=== PATIENT | female | born 1985 | race Caucasian/White ===

== ENCOUNTER 2022-10-16 11:31 | Outpatient (CLI) | payer OTHER, SELFPAY ==
[2022-10-16 13:44] LABS: Basophils Absolute Auto 0.1 K/mm3 (0.0-0.1); Basophils Percent Auto 0.7 % (0.2-1.2); Eosinophils Absolute Auto 0.2 K/mm3 (0-0.3); Eosinophils Percent Auto 2.4 % (0-4.4); Hematocrit 37.5 % (37.0-47.0); Hemoglobin 12.4 g/dL (12.0-15.0); Immature Granulocyte Absolute 0.02 K/mm3 (0.00-0.031); Immature Granulocyte Percent A 0.3 % (0-0.5); Lymphocytes Absolute Auto 2.37 K/mm3 (0.9-3.2); Lymphocytes Percent Auto 31.2 % (18.3-44.2); Mean Corpuscular HGB Conc 33.1 g/dl (32-36); Mean Corpuscular Hemoglobin 32.5 pg (26-34); Mean Corpuscular Volume 98.2 fl (80-100); Mean Platelet Volume 10.1 fl (7.4-10.4); Monocytes Absolute Auto 0.5 K/mm3 (0.1-0.6); Monocytes Percent Auto 6.5 % (2.6-8.5); Neutrophils Absolute Auto 4.5 K/mm3 (1.3-6.7); Neutrophils Percent Auto 58.9 % (45.5-73.1); Platelet Count Result 251 k/mm3 (150-375); Red Blood Count 3.82 M/mm3 (4.2-5.4); Red Cell Distribution Width 13.2 % (11.5-14.5); White Blood Count 7.6 K/mm3 (4.5-10.0)
== END 2022-10-16 11:32 | disposition home or self-care (01) ==
PROVIDERS: PCP Nurse Practitioner; Visit Provider Obstetrics & Gynecology
DX: Z01.818 Encounter for other preprocedural examination (principal); N93.9 Abnormal uterine and vaginal bleeding, unspecified
CPT/HCPCS: 36415; 85025; 86850; 86900; 86901

== ENCOUNTER 2022-10-19 03:17 | Day surgery (SDC) | payer OTHER, SELFPAY ==
[2022-10-11 12:23] VITALS: BMI 30.2
--- NOTE | 2022-10-11 12:30 | PC.NURSE ---
Report to the Outpatient Waiting Room, entrance under the green pavilion located off [facility], at time 9:30 on date 10/19/22. Planned Procedure Time: 11:30. Time changes happen often and if your time is changed the preop area will call you the afternoon before. - You and your visitor will be asked to self-screen and do not enter if you have any COVID symptoms. - A mask is optional within the hospital at this time. Patients may have clear liquids (water, carbonated beverages, clear teas, apple juice) until 3 hours prior to surgery (8:30) with a maximum of 20 ounces. - No food from midnight until time of surgery Take the following medications with a SIP of water the morning of surgery: NONE DO NOT STOP ANY OF YOUR OTHER PRESCRIPTION MEDICATIONS PRIOR TO SURGERY ?EXCEPT THE FOLLOWING Medications to discontinue per physician: VITAMINS/SUPPLEMENTS Date to take last dose: 10/15/22 Please no make-up, nail greenlandic, hairspray, perfume, deodorant, or body powder the day of surgery. No jewelry (including any body piercings) or valuables the day of surgery, leave them at home. Please take a shower or bath the night before, or the morning of, surgery with an antibacterial soap. Wear comfortable, loose fitting clothing. - Jewelry must be removed prior to entering the operating room. Rings and piercings that are not removed may be cut off. - The hospital will not accept responsibility for valuables. - Please leave all valuables, including medications, at home the day of surgery. If you are going home after surgery, a licensed stake driver must drive you home. - NO public transportation without another adult if you receive anesthesia. - We recommend that an adult stay with you for 24 hours following discharge. - We also recommend that you do not drive, make important decision, drink alcoholic beverages, or take any drugs that were not prescribed by your health care provider for at least 24 hours after your discharge time. Follow any additional instructions given to you from your surgeon. If you or anyone in your household have experienced Covid symptoms in the past week, please notify your surgeon or the nurse liaison at the phone number below for possible testing. Telephone instructions given to PT - GEORGE TORRES and asked if any additional questions and then verbalized understanding. Patient advised to call surgeon office or pre surgery nurse liaison [phone] if any additional questions.
--- NOTE | 2022-10-16 16:21 | PM.IMHP ---
H&P: HPI History of Present Illness Date/Time: 10/16/22 16:21 Chief Complaint: vaginal bleeding Narrative: for 4 months is a 36-year-old multiparous patient admitted for robotic hysterectomy and bilateral salpingectomy secondary to a failed ablation with heavy bleeding. She continues to have heavy irregular bleeding despite having had an ablation she opts for hysterectomy and bilateral salpingectomy with remaining ovaries. Risks and benefits were reviewed including not exclusive aspiration any bleeding transfusion infection perforation of the bowel bladder ureters on the enlarged with need for laparotomy. She received the [employer] handout entitled hysterectomy as well as the Terri and out. She had all questions answered. She asked proceeded [facility] Past Medical History Medical History (Updated 10/16/22 @ 16:27 by Rajesh Hernandez MD) Anxiety and depression Blood pressure elevated without history of HTN Essential (primary) hypertension Vitamin D deficiency Family History Family History Mother Hypertension Cerebrovascular accident Father Patient's father is in good health Grandparent Cerebrovascular accident Family history of malignant neoplasm Malignant neoplasm of prostate Family history of malignant neoplasm of thyroid Social History Social History (Updated 01/12/22 @ 13:27 by Shante Tapia MA) Smoking status: Never smoker Second hand tobacco smoke exposure: Yes Alcohol intake: current Drinks per week: 2 Substance use: never Substance use type: does not use Lack of Transportation: No Lack of Food: Never True Current Housing: I Have Housing Concerned About Future Housing: No Difficulty Paying Gas/Electric Bills: No Difficulty Paying for Meds: No Currently Unemployed: No Education: Master's Degree or Higher Difficulty w/ Childcare or Family Care: No Living arrangements: with family Additional living arrangements comments: CHILDREN Spiritual care concerns: No Meds Home Medications and Allergies Home Medications Medication Instructions Recorded Confirmed Type cholecalciferol (vitamin D3) 50 50 mcg PO DAILY 01/12/22 10/11/22 History mcg (2,000 unit) capsule multivitamin 1 tablet PO DAILY 01/12/22 10/11/22 History Allergies Allergy/AdvReac Type Severity Reaction Status Date / Time Sulfa (Sulfonamide Allergy Unknown Hives Verified 10/11/22 12:23 Antibiotics) Exam Const: General: cooperative, healthy appearing and comfortable Nutritional Appearance: average body habitus Orientation/consciousness: oriented to person, oriented to place and oriented to time HENMT: Head: normal to inspection Resp: Effort & Inspection: normal respiratory effort Cardio: Rate: regular rate Rhythm: regular rhythm Heart sounds: S1 normal heart sound present and S2 normal heart sound present GI: Inspection: normal to inspection : External Female Exam: normal external appearance Speculum Exam - Vagina: normal appearance of the vagina Speculum Exam - Cervix: normal appearance of the cervix Bimanual exam- vagina & uterus: uterine shape normal Bimanual Exam- Adnexa, other: normal adnexae Assessment and Plan Assessment and plan (1) Vaginal bleeding: Code(s): N93.9 - Abnormal uterine and vaginal bleeding, unspecified Status: Acute Plan robotic total vaginal hysterectomy and bilateral salpingectomy
[2022-10-19] VITALS (10 sets, daily range): BP systolic 124–171; BP diastolic 68–92; PULSE 50–83; RESP 10–18; TEMP 36.6–37.2; O2SAT 100
--- NOTE | 2022-10-19 06:35 | WPDHPUPDATE1 ---
History and Physical Update Update Date/Time: 10/19/22 06:35 History and Physical has been reviewed, including an updated exam of the patient. There are NO changes in the patient's condition. Risks, benefits, and alternatives have been discussed and questions answered. Patient agrees to proceed with procedure.
[2022-10-19] MEDS: KETOROLAC 15 MG/ML VIAL (*BKC) IV PUSH (10:01)
[2022-10-19] MEDS: LACTATED RINGERS 1,000 ML 30 ML IV CONT ×2 (10:01→12:37)
[2022-10-19] MEDS: ACETAMINOPHEN 500 MG TABLET 1000 MG PO (10:02)
[2022-10-19] MEDS: SCOPOLAMINE 1.5 MG PATCH TRANSDERM (10:03)
--- NOTE | 2022-10-19 10:17 | WPDANESEPPF ---
Anes - Initial Pre Proc Eval Procedure: Operation Date: 10/19/22 11:30 Proposed Procedures p Robotic Assisted Total Vaginal Hysterectomy with Bilateral Salpingectomy - Rajesh Hernandez MD Date/Time: 10/19/22 10:17 Surgeon: Rajesh Hernandez MD Pre Op Diagnosis: excess vag bleeding, pain, failed ablation Patient Data Age: 36 Gender: F Height: 1.55 m Weight: 72.3 kg Last Vital Signs Temp 36.7 C 10/19/22 09:40 Pulse 83 10/19/22 09:40 Resp 16 10/19/22 09:40 BP 144/82 H 10/19/22 09:40 Pulse Ox 100 10/19/22 09:40 O2 Del Method Room Air 10/19/22 09:40 Allergies Allergy/AdvReac Type Severity Reaction Status Date / Time Sulfa (Sulfonamide Allergy Unknown Hives Verified 10/19/22 09:45 Antibiotics) Home Medications Medication Instructions Recorded Confirmed Type cholecalciferol (vitamin D3) 50 50 mcg PO DAILY 01/12/22 10/19/22 History mcg (2,000 unit) capsule multivitamin 1 tablet PO DAILY 01/12/22 10/19/22 History hydrocodone 5 mg-acetaminophen 325 1 tablet PO Q4H PRN pain #30 tabs 10/19/22 Rx mg tablet Patient hx anesthesia problems: none Family hx anesthesia problems: none Results Review: All pre-operative results and documents have been reviewed as part of the pre-operative evaluation. [facility] Past Medical History Medical History Anxiety and depression Blood pressure elevated without history of HTN Essential (primary) hypertension Vitamin D deficiency Family History Family History Mother Hypertension Cerebrovascular accident Father Patient's father is in good health Grandparent Cerebrovascular accident Family history of malignant neoplasm Malignant neoplasm of prostate Family history of malignant neoplasm of thyroid Social History Social History Smoking status: Never smoker Second hand tobacco smoke exposure: Yes Alcohol intake: current Drinks per week: 2 Substance use: never Substance use type: does not use Lack of Transportation: No Lack of Food: Never True Current Housing: I Have Housing Concerned About Future Housing: No Difficulty Paying Gas/Electric Bills: No Difficulty Paying for Meds: No Currently Unemployed: No Education: Master's Degree or Higher Difficulty w/ Childcare or Family Care: No Living arrangements: with family Additional living arrangements comments: CHILDREN Spiritual care concerns: No Anes - Eval Final PreProcedure Day of Procedure 10/19/22 10:17 Patient weight: obese Heart: regular rate and rhythm Lungs: clear to auscultation Airway: Mallampati scale class II Neurological: alert and oriented Last oral intake: >/= 8 hours ASA classification: II Emergent: no Anesthetic plan: proceed Anesthesia type and monitoring: general ETT and standard monitoring Results Review: All pre-operative results and documents have been reviewed as part of the pre-operative evaluation. Informed Consent: The patient's anesthetic plan and its attendant risks and benefits were discussed with the patient/family/POA. Questions were solicited and answers provided to the satisfaction of the patient/family/POA.
[2022-10-19] MEDS: ceFAZolin 2 GM/D5W 50 ML 2 GM/50 ML BAG IVPB (11:14)
--- NOTE | 2022-10-19 12:26 | W.PM.PROC2 ---
Procedure Note - Detailed Date of Procedure 10/19/22 Pre-op Diagnosis excess vag bleeding, pain, failed ablation Post-op Diagnosis Same Procedure Performed Robotic total vaginal hysterectomy bilateral salpingectomy Surgeon Rajesh Hernandez MD Anesthesia General Indications is a 36-year-old female with failed ablation uterus Findings markedly enlarged uterus. Normal-appearing ovaries bilaterally. Normal-appearing tubes bilaterally Description of Procedure patient was prepped draped in normal sterile fashion placed in dorsal lithotomy position. Under excellent general trach anesthesia weighted speculum placed in posterior fornix vagina. Anterior lip of the cervix grasped with single-tooth tenaculum. Uterus sounded to 10cm. Serial dilatation with fragmented dilators performed followed passes the 10. QUINN and the 3. 0.5 cold cup. Next the 16 [place] catheter was placed in the bladder and drained of clear urine. The weighted speculum and single-tooth removed and the gloves were changed. Suprapubic incision made the fire Veress needle passed in the abdomen. Abdomen filled with CO2 gas with 15mm marked. The 8mm trocar advanced in the abdomen. Downside visualized no injury seen. Patient placed in Trendelenburg and a right left lateral quadrant incisions made 8mm trocars advanced under direct visualization assuring no injury. A right upper quadrant incision made and the 8mm trocar advanced under direct visualization assuring no injury. The robot was docked. Attention was turned to the console. The uterus and noted be large and irregular consistent with fibroids and probable adenomyosis. There was an anterior adhesion from the omentum to the anterior wall and this was sharply dissected lot of the left round ligament was grasped, burned, cut. Anteriorly a bladder flap was formed by sharply dissecting the peritoneum. This was brought to the opposite round ligament which was clamped, burned, cut. Next the left fallopian tube was skeletonized removed off the ovarian complex left attached to the uterine origin. The right tube was left attached to the uterine origin as well. The left ovary was conserved by clamping burning and cutting the end utero-ovarian ligament. This was brought to the level of previously cut round ligament. In like fashion conserving the right ovary the utero-ovarian ligament was clamped, burned, cut. Next the cardinal broad ligaments on the left were serially skeletonized clamping burning cutting and hugging the cervix and uterus. The right cardinal broad ligaments were serially skeletonized clamping burning cutting until the uterine vessels could be seen on the right. These were individually clamped, burned, cut. Blanching of the uterus was noted at that point. A colpotomy incision was made in the cervix uterus and tubes removed through the vagina. The vagina then closed with continuous running 0V lock from lateral edge to lateral edge back to the midline. Irrigation undertaken until clear and [place] term placed over the raw sites surface area. The robot was undocked. The gas removed from the abdomen the trocars removed. Incisions closed with 4 Monocryl and glue. Patient went to recovery in satisfactory condition. All sponge, needle, instrument counts were correct. There were no immediate complications Estimated Blood Loss 50 Drains No Packing No Pathology Yes Complications No immediate complications Condition Stable Disposition PACU
[2022-10-19] MEDS: fentaNYL CITRATE INJ (*CRX) 100 MCG/2 ML VIAL 25 MCG IV PUSH ×2 (13:35→13:40)
--- NOTE | 2022-10-19 13:47 | PM.DS ---
DS: Admitting Diagnosis Discharge Date 10/21/2019 Admitting Diagnosis vaginal vaginal enlarged uterus DS: Discharge Diagnosis Discharge Diagnosis (1) Vaginal bleeding: Code(s): N93.9 - Abnormal uterine and vaginal bleeding, unspecified Status: Acute DS: Summary Hospital Course Reason for hospitalization: patient was admitted for robotic hysterectomy bilateral self injecting me secondary to enlarged uterus bleeding and failed the ablation. Hospital Course: Patient underwent the above-named procedure. Her hospital course was unremarkable. She remained afebrile. She was up, voiding without difficulty, ambulating, eating regular diet, generally thought complaints. Time Spent with Patient Time attestation: Total time spent providing and/or coordinating discharge services: Exam Const: General: cooperative, healthy appearing and comfortable Nutritional Appearance: average body habitus Orientation/consciousness: oriented to person, oriented to place and oriented to time HENMT: Head: normal to inspection Resp: Effort & Inspection: normal respiratory effort Cardio: Rate: regular rate Rhythm: regular rhythm Heart sounds: S1 normal heart sound present and S2 normal heart sound present GI: Inspection: normal to inspection and incision ( Wounds clean dry and intact) DS: Data Data Completed and Pending Pending studies at discharge: Pending at discharge 10/19/22 12:04 Surgical [PTH] Routine Discharge Plan Discharge Patient Disposition: Home, Self-Care Discharge Instructions: Nothing in vagina for six weeks. Call or return if temperature above 100.4? F, increased abdominal pain, increased vaginal bleeding or any new problems. Patient Instructions: Vaginal Hysterectomy (DC), Pain Management After Surgery (DC) Stand Alone Forms: General Discharge Instructions Follow-up/Referrals: Rajesh Perez MD [Physician] - 2 Weeks Discharge Medications: New hydrocodone-acetaminophen 5-325 mg tablet 1 tablet PO Q4H PRN (Reason: pain) Qty: 30 0RF Continued cholecalciferol (vitamin D3) 50 mcg (2,000 unit) capsule 50 mcg PO DAILY multivitamin Tablet 1 tablet PO DAILY
--- NOTE | 2022-10-19 13:50 | PC.NURSE ---
This patient, Mayra Abrams, was received from PACU on 10/19/22 at 1350. Patient/family oriented to unit policies and routines
[2022-10-19] MEDS: DEXTROSE 5%/LACTATED RINGERS 1,000 ML 125 ML IV CONT (14:29)
[2022-10-19] MEDS: KETOROLAC 30 MG/ML VIAL (*BKC) IV PUSH (14:29)
[2022-10-19] MEDS: ONDANSETRON INJ 4 MG/2 ML VIAL IV PUSH (14:30)
[2022-10-19] MEDS: DOCUSATE SODIUM 100 MG CAPSULE PO (16:38)
[2022-10-19] MEDS: HYDROcodone/acetaminophen (*CRX) 5-325 MG TABLET 1 TAB PO (16:38)
[2022-10-19] MEDS: SIMETHICONE 80 MG TAB.CHEW PO (21:07)
[2022-10-20] VITALS: BP 134/92; PULSE 79; RESP 18; TEMP 37.1; O2SAT 99
[2022-10-20 04:00] VITALS: BP 147/76; PULSE 76; RESP 18; TEMP 37.2; O2SAT 100
[2022-10-20] MEDS: IBUPROFEN 600 MG TABLET PO ×2 (04:37→09:43)
[2022-10-20] MEDS: HYDROcodone/acetaminophen (*CRX) 5-325 MG TABLET 1 TAB PO ×2 (04:37→09:44)
[2022-10-20 04:40] LABS: Basophils Absolute Auto 0.1 K/mm3 (0.0-0.1); Basophils Percent Auto 0.4 % (0.2-1.2); Eosinophils Absolute Auto 0.1 K/mm3 (0-0.3); Eosinophils Percent Auto 0.7 % (0-4.4); Hematocrit 32.2 % (37.0-47.0); Hemoglobin 10.8 g/dL (12.0-15.0); Immature Granulocyte Absolute 0.04 K/mm3 (0.00-0.031); Immature Granulocyte Percent A 0.3 % (0-0.5); Lymphocytes Percent Auto 18.3 % (18.3-44.2); Mean Corpuscular HGB Conc 33.5 g/dl (32-36); Mean Corpuscular Hemoglobin 32.6 pg (26-34); Mean Corpuscular Volume 97.3 fl (80-100); Mean Platelet Volume 10.9 fl (7.4-10.4); Monocytes Percent Auto 8.5 % (2.6-8.5); Neutrophils Absolute Auto 8.2 K/mm3 (1.3-6.7); Neutrophils Percent Auto 71.8 % (45.5-73.1); Platelet Count Result 234 k/mm3 (150-375); Red Blood Count 3.31 M/mm3 (4.2-5.4); Red Cell Distribution Width 13.4 % (11.5-14.5); White Blood Count 11.5 K/mm3 (4.5-10.0)
--- NOTE | 2022-10-20 09:00 | PC.NURSE ---
PT introductions made and plan of care discussed per post op wood heel flap inserter surgery, pain management, daily care activities and pending discharge to home. PT and significant other both recipients of such instructions and no barriers to learning identified at thist time. PT received such instructions per one to one discussion and demonstrations. PT verbalized understanding of such care.
[2022-10-20] MEDS: DOCUSATE SODIUM 100 MG CAPSULE PO (09:43)
[2022-10-20] MEDS: SIMETHICONE 80 MG TAB.CHEW PO (09:43)
[2022-10-20] MEDS: ENOXAPARIN 40 MG/0.4 ML SYRINGE SUB-Q (09:44)
[2022-10-20 10:27] VITALS: BP 147/78; PULSE 71; RESP 18; TEMP 37.3; O2SAT 97
--- NOTE | 2022-10-20 10:47 | PM.GYNPNOP ---
REVENUE LIAISON - A/P Assessment and plan (1) Vaginal bleeding: Code(s): N93.9 - Abnormal uterine and vaginal bleeding, unspecified Status: Acute Assessment and Plan: A: POD#1, doing well. P: Home to f/u 2 weeks. Postoperative Procedures: Procedures Operation Date: 10/19/22 11:30 Actual Procedure Side Surgeon p Robotic Assisted Total Vaginal Hysterectomy with Bilateral Salpingectomy Bilateral Rajesh Hernandez MD Postoperative day: 1 Postoperative status: doing well Postoperative plan: routine post-op care Time Spent With Patient Time with patient: less than 15 minutes REVENUE LIAISON- PN:Subj Post-Op Subjective Date/time seen: 10/20/22 10:47 Interval history: Pain OK. Tolerating diet. Voiding. Would like to go home. Exam Narrative: AVSS I/O OK ABD soft, nontender. Incisions c/d/i. EXT nontender REVENUE LIAISON - PN: Obj Data Vital Signs Vital Signs: Vital Signs - 24 hr 10/19/22 12:40 10/19/22 12:48 10/19/22 12:50 Temperature 36.6 C Pulse Rate 61 63 Respiratory Rate 10 L 11 L Blood Pressure 124/68 171/90 H Pulse Oximetry 100 100 100 Oxygen Delivery Simple Face Mask Simple Face Mask Simple Face Mask Oxygen Flow Rate 8 8 6 10/19/22 13:05 10/19/22 13:19 10/19/22 13:33 Temperature Pulse Rate 65 61 63 Respiratory Rate 14 12 12 Blood Pressure 166/91 H 165/89 H 144/92 H Pulse Oximetry 100 100 100 Oxygen Delivery Room Air Room Air Room Air Oxygen Flow Rate 10/19/22 13:50 10/19/22 15:45 10/19/22 19:40 Temperature 36.7 C 37.0 C 37.2 C Pulse Rate 50 L 64 66 Respiratory Rate 16 18 18 Blood Pressure 156/89 H 144/85 H 137/83 Pulse Oximetry 100 100 100 Oxygen Delivery Oxygen Flow Rate 10/20/22 00:00 10/20/22 04:00 10/20/22 10:27 Temperature 37.1 C 37.2 C Pulse Rate 79 76 71 Respiratory Rate 18 18 18 Blood Pressure 134/92 H 147/76 H Pulse Oximetry 99 100 97 Oxygen Delivery Room Air Oxygen Flow Rate 10/20/22 10:27 Temperature 37.3 C Pulse Rate 71 Respiratory Rate 18 Blood Pressure 147/78 H Pulse Oximetry 97 Oxygen Delivery Oxygen Flow Rate Intake/Output Intake/Output: Intake & Output 10/17/22 10/18/22 10/19/22 10/20/22 23:59 23:59 23:59 23:59 Intake Total 3420 680 Output Total 275 300 Balance 3145 380 Meds/Results Medications: Active Medications Generic Name Dose Route Start Last Admin Trade Name Freq PRN Reason Stop Dose Admin Hydrocodone Bitart/Acetaminophen 1 tab 10/19/22 13:43 Hydrocodone/Acetaminophen (*Crx) 10-325 Mg Tablet PO Q3H PRN Pain Rated 6 or Greater Hydrocodone Bitart/Acetaminophen 1 tab 10/19/22 13:43 10/20/22 09:44 Hydrocodone/Acetaminophen (*Crx) 5-325 Mg Tablet PO 1 tab Q3H PRN Administration Pain Rated 5 or Less Docusate Sodium 100 mg 10/19/22 17:00 10/20/22 09:43 Docusate Sodium 100 Mg Capsule PO 100 mg BID LUIZ Administration Enoxaparin Sodium 40 mg 10/20/22 09:00 10/20/22 09:44 Enoxaparin 40 Mg/0.4 Ml Syringe SUB-Q 40 mg DAILY LUIZ Administration Ibuprofen 600 mg 10/19/22 13:43 10/20/22 09:43 Ibuprofen 600 Mg Tablet PO 600 mg Q6H PRN Administration Cramping Ketorolac Tromethamine 30 mg 10/19/22 13:43 10/19/22 14:29 Ketorolac 30 Mg/Ml Vial (*Bkc) IV PUSH 10/24/22 13:42 30 mg Q6H PRN Administration Pain Rated 4-6 Naloxone HCl 0.1 mg 10/19/22 13:43 Naloxone Hcl 0.4 Mg/Ml Vial IV PUSH Q2M PRN Respiratory rate less than 10 Ondansetron HCl 4 mg 10/19/22 13:43 10/19/22 14:30 Ondansetron Inj 4 Mg/2 Ml Vial IV PUSH 4 mg Q6H PRN Administration Nausea And Vomiting Simethicone 80 mg 10/19/22 13:43 10/20/22 09:43 Simethicone 80 Mg Tab.Chew PO 80 mg Q2H PRN Administration Gas Labs 10/20/22 03:16 Labs: Laboratory Results - last 24 hr 10/20/22 03:16 WBC 11.5 H RBC 3.31 L Hgb 10.8 L Hct 32.2 L MCV 97.3 MCH 32.6 MCHC 33.5 RDW 13.4
--- NOTE | 2022-10-20 10:50 | PM.DS ---
DS: Admitting Diagnosis Discharge Date 10/20/22 Admitting Diagnosis Menometrorrhagia DS: Discharge Diagnosis Discharge Diagnosis (1) Vaginal bleeding: Code(s): N93.9 - Abnormal uterine and vaginal bleeding, unspecified Status: Acute DS: Summary Hospital Course Hospital Course: She was admitted for scheduled surgery. Postop she did well and was able to go home on POD1. Time Spent with Patient Time attestation: Total time spent providing and/or coordinating discharge services: DS: Data Data Completed and Pending Pending studies at discharge: Pending at discharge 10/19/22 12:04 Surgical [PTH] Routine Labs on day of discharge: Labs from last 24 hours 10/20/22 03:16 WBC 11.5 H RBC 3.31 L Hgb 10.8 L Hct 32.2 L MCV 97.3 MCH 32.6 MCHC 33.5 RDW 13.4 Plt Count 234 MPV 10.9 H Immature Gran % (Auto) 0.3 Neut % (Auto) 71.8 Lymph % (Auto) 18.3 [place] % (Auto) 8.5 Eos % (Auto) 0.7 Baso % (Auto) 0.4 Lymph # (Auto) 2.10 [place] # (Auto) 1.0 H Eos # (Auto) 0.1 Baso # (Auto) 0.1 Abs Immat Gran (auto) 0.04 H Absolute Neuts (auto) 8.2 H Absolute Nucleated RBC 0.0 Nucleated RBC % 0.0 Discharge Plan Discharge Patient Disposition: Home, Self-Care Discharge Instructions: Nothing in vagina for six weeks. Call or return if temperature above 100.4? F, increased abdominal pain, increased vaginal bleeding or any new problems. Patient Instructions: Vaginal Hysterectomy (DC), Pain Management After Surgery (DC) Stand Alone Forms: General Discharge Instructions Follow-up/Referrals: Rajesh Perez MD [Physician] - 2 Weeks Discharge Medications: New hydrocodone-acetaminophen 5-325 mg tablet 1 tablet PO Q4H PRN (Reason: pain) Qty: 30 0RF Continued cholecalciferol (vitamin D3) 50 mcg (2,000 unit) capsule 50 mcg PO DAILY multivitamin Tablet 1 tablet PO DAILY
--- NOTE | 2022-10-20 11:42 | PC.NURSE ---
PT received discharge instructions and handouts for post op remote sensing advisor surgery and then ambulated to waiting car accompanied by staff nurse.Follow up appts confirmed.
== END 2022-10-20 11:42 | disposition home or self-care (01) ==
LOC: ANHSURGERY 09:22 → ANHOB2 13:45
PROVIDERS: PCP Nurse Practitioner; Visit Provider Obstetrics & Gynecology
PROC: (CPT 58552; principal; 2022-10-19 11:30)
DX: N93.9 Abnormal uterine and vaginal bleeding, unspecified (principal); N80.03 Adenomyosis of the uterus; D25.1 Intramural leiomyoma of uterus; R10.2 Pelvic and perineal pain; F41.8 Other specified anxiety disorders; E55.9 Vitamin D deficiency, unspecified; E66.9 Obesity, unspecified; Z68.30 Body mass index [BMI] 30.0-30.9, adult
CPT/HCPCS: 58552; S2900; 36415; 85025; 86850; 86900; 86901; 88307; 99199; A9270; J0690; J1100; J1650; J1885; J2250; J2405; J2704; J3010; J7030; J7120; J7121

== ENCOUNTER 2022-11-15 00:38 | Day surgery (SDC) | payer OTHER, SELFPAY ==
[2022-11-14 09:35] VITALS: BMI 30.1
--- NOTE | 2022-11-14 09:35 | PC.NURSE ---
Report to the Outpatient Waiting Room, entrance under the green pavilion located off [facility], at time 0815 on date 11/15/22. Planned Procedure Time: 1015. Time changes happen often and if your time is changed the preop area will call you the afternoon before. - You and your visitor will be asked to self-screen and do not enter if you have any COVID symptoms. - A mask is optional within the hospital at this time. Patients may have clear liquids (water, carbonated beverages, clear teas, apple juice) until 3 hours prior to surgery with a maximum of 20 ounces. - No food from midnight until time of surgery Take the following medications with a SIP of water the morning of surgery: PAIN PILL IF NEEDED DO NOT STOP ANY OF YOUR OTHER PRESCRIPTION MEDICATIONS PRIOR TO SURGERY ?EXCEPT THE FOLLOWING Medications to discontinue per physician: VITAMINS/SUPPLEMENTS Date to take last dose: NO MORE UNTIL AFTER SURGERY Please no make-up, nail senegalese, hairspray, perfume, deodorant, or body powder the day of surgery. No jewelry (including any body piercings) or valuables the day of surgery, leave them at home. Please take a shower or bath the night before, or the morning of, surgery with an antibacterial soap. Wear comfortable, loose fitting clothing. - Jewelry must be removed prior to entering the operating room. Rings and piercings that are not removed may be cut off. - The hospital will not accept responsibility for valuables. - Please leave all valuables, including medications, at home the day of surgery. If you are going home after surgery, a licensed regional refrigerated cdl truck driver must drive you home. - NO public transportation without another adult if you receive anesthesia. - We recommend that an adult stay with you for 24 hours following discharge. - We also recommend that you do not drive, make important decision, drink alcoholic beverages, or take any drugs that were not prescribed by your health care provider for at least 24 hours after your discharge time. Follow any additional instructions given to you from your surgeon. If you or anyone in your household have experienced Covid symptoms in the past week, please notify your surgeon or the nurse liaison at the phone number below for possible testing. Telephone instructions given to JUAN VAZQUEZ and asked if any additional questions and then verbalized understanding. Patient advised to call surgeon office or pre surgery nurse liaison [phone] if any additional questions.
--- NOTE | 2022-11-14 14:43 | PM.IMHP ---
H&P: HPI History of Present Illness Date/Time: 11/14/22 14:43 Chief Complaint: Vaginal bleeding Narrative: 36-year-old female underwent robotic hysterectomy salpingectomy 3 weeks ago. She had some spotting she has been treated twice there was a small spot at the top of the the continues to ooze despite conservative therapy. She is admitted for repair of this bleeding. [facility] Past Medical History Medical History Anxiety and depression Blood pressure elevated without history of HTN Essential (primary) hypertension Vitamin D deficiency Family History Family History Mother Hypertension Cerebrovascular accident Father Patient's father is in good health Grandparent Cerebrovascular accident Family history of malignant neoplasm Malignant neoplasm of prostate Family history of malignant neoplasm of thyroid Social History Social History Smoking status: Never smoker Second hand tobacco smoke exposure: Yes Alcohol intake: current Drinks per week: 2 Substance use: never Substance use type: does not use Lack of Transportation: No Lack of Food: Never True Current Housing: I Have Housing Concerned About Future Housing: No Difficulty Paying Gas/Electric Bills: No Difficulty Paying for Meds: No Currently Unemployed: No Education: Master's Degree or Higher Difficulty w/ Childcare or Family Care: No Living arrangements: with family Additional living arrangements comments: CHILDREN Spiritual care concerns: No Meds Home Medications and Allergies Home Medications Medication Instructions Recorded Confirmed Type cholecalciferol (vitamin D3) 50 50 mcg PO DAILY 01/12/22 11/14/22 History mcg (2,000 unit) capsule multivitamin 1 tablet PO DAILY 01/12/22 11/14/22 History hydrocodone 5 mg-acetaminophen 325 1 tablet PO Q4H PRN pain #30 tabs 10/19/22 11/14/22 Rx mg tablet Allergies Allergy/AdvReac Type Severity Reaction Status Date / Time Sulfa (Sulfonamide Allergy Unknown Hives Verified 11/14/22 09:34 Antibiotics) Exam Const: General: cooperative, healthy appearing and comfortable Nutritional Appearance: average body habitus Orientation/consciousness: oriented to person, oriented to place and oriented to time Resp: Effort & Inspection: normal respiratory effort Cardio: Rate: regular rate Rhythm: regular rhythm Heart sounds: S1 normal heart sound present and S2 normal heart sound present GI: Inspection: normal to inspection and incision (Wounds are clean dry and intact) : External Female Exam: normal external appearance Speculum Exam - Vagina: normal appearance of the vagina Speculum Exam - Cervix: Cervix absent and Other cervical findings present (Small area of oozing at the midportion of the vaginal incision) Assessment and Plan Assessment and plan (1) Vaginal bleeding: Code(s): N93.9 - Abnormal uterine and vaginal bleeding, unspecified Status: Acute Plan Repair of vaginal cuff
--- NOTE | 2022-11-15 07:11 | WPDHPUPDATE1 ---
History and Physical Update Update Date/Time: 11/15/22 07:11 History and Physical has been reviewed, including an updated exam of the patient. There are NO changes in the patient's condition. Risks, benefits, and alternatives have been discussed and questions answered. Patient agrees to proceed with procedure.
[2022-11-15 08:20] VITALS: BP 137/65; PULSE 65; RESP 20; TEMP 36.1; O2SAT 100
[2022-11-15] MEDS: ACETAMINOPHEN 500 MG TABLET 1000 MG PO (08:25)
[2022-11-15] MEDS: LACTATED RINGERS 1,000 ML 30 ML IV CONT (08:50)
--- NOTE | 2022-11-15 09:05 | P.PNAN_ITS ---
Anes - Initial Pre Proc Eval Procedure: Operation Date: 11/15/22 10:15 Proposed Procedures p Repair Vaginal Cuff - Rajesh Hernandez MD Date/Time: 11/15/22 09:05 Surgeon: Rajesh Hernandez MD Pre Op Diagnosis: vaginal cuff tear Patient Data Age: 36 Gender: F Height: 1.55 m Weight: 70.7 kg Last Vital Signs Temp 36.1 C L 11/15/22 08:20 Pulse 65 11/15/22 08:20 Resp 20 11/15/22 08:20 BP 137/65 11/15/22 08:20 Pulse Ox 100 11/15/22 08:20 O2 Del Method Room Air 11/15/22 08:20 Allergies Allergy/AdvReac Type Severity Reaction Status Date / Time Sulfa (Sulfonamide Allergy Unknown Hives Verified 11/15/22 08:24 Antibiotics) Home Medications Medication Instructions Recorded Confirmed Type cholecalciferol (vitamin D3) 50 50 mcg PO DAILY 01/12/22 11/15/22 History mcg (2,000 unit) capsule multivitamin 1 tablet PO DAILY 01/12/22 11/15/22 History hydrocodone 5 mg-acetaminophen 325 1 tablet PO Q4H PRN pain #30 tabs 10/19/22 11/14/22 Rx mg tablet Patient hx anesthesia problems: none Family hx anesthesia problems: none Results Review: All pre-operative results and documents have been reviewed as part of the pre- operative evaluation. [facility], [facility] Past Medical History Medical History Anxiety and depression Blood pressure elevated without history of HTN Essential (primary) hypertension Vitamin D deficiency Family History Family History Mother Hypertension Cerebrovascular accident Father Patient's father is in good health Grandparent Cerebrovascular accident Family history of malignant neoplasm Malignant neoplasm of prostate Family history of malignant neoplasm of thyroid Social History Social History Smoking status: Never smoker Second hand tobacco smoke exposure: Yes Alcohol intake: current Drinks per week: 2 Substance use: never Substance use type: does not use Lack of Transportation: No Lack of Food: Never True Current Housing: I Have Housing Concerned About Future Housing: No Difficulty Paying Gas/Electric Bills: No Difficulty Paying for Meds: No Currently Unemployed: No Education: Master's Degree or Higher Difficulty w/ Childcare or Family Care: No Living arrangements: with family Additional living arrangements comments: CHILDREN Spiritual care concerns: No Anes - Eval Final PreProcedure Day of Procedure 11/15/22 09:05 Patient weight: overweight Heart: regular rate and rhythm Lungs: clear to auscultation Airway: Mallampati scale class II Neurological: alert and oriented Last oral intake: >/= 8 hours ASA classification: II Emergent: no Anesthetic plan: proceed Anesthesia type and monitoring: general GIVS and standard monitoring Results Review: All pre-operative results and documents have been reviewed as part of the pre- operative evaluation. Informed Consent: The patient's anesthetic plan and its attendant risks and benefits were discus sed with the patient/family/POA. Questions were solicited and answers provided to the satisfaction of th
[2022-11-15] MEDS: SCOPOLAMINE 1.5 MG PATCH TRANSDERM (09:45)
--- NOTE | 2022-11-15 10:45 | W.PM.PROC2 ---
Procedure Note - Detailed Date of Procedure 11/15/22 Pre-op Diagnosis vaginal cuff tear Post-op Diagnosis Same Procedure Performed Repair of vaginal cuff Surgeon Rajesh Hernandez MD Anesthesia General Indications This is a patient is 3 weeks hysterectomy had some spotting and bleeding which was refractory to cauterization the office. Findings The cuff was completely intact. At 1 midportion was a small area where the stitch was pulling and bleeding minimal amount was seen. Description of Procedure Patient was prepped draped in normal sterile fashion placed in dorsal lithotomy position. Under excellent LMA anesthesia weighted speculum placed in posterior fornix vagina. The cuff looked completely intact at the midportion was a small oozy area. This was grasped and a [id number] suture with 0 Vicryl was placed. She was watched for 5minutes and no further bleeding could be seen the remainder of the cuff appeared completely intact. The instruments were withdrawn the patient was awakened went to recovery in satisfactory condition. There were no immediate complications noted Estimated Blood Loss 5 Drains No Packing No Pathology None sent Complications No immediate complications Condition Stable Disposition PACU
[2022-11-15 10:50] VITALS: BP 119/84; PULSE 80; RESP 14; O2SAT 100
[2022-11-15 11:20] VITALS: BP 125/63; PULSE 53; RESP 12
== END 2022-11-15 11:53 | disposition home or self-care (01) ==
PROVIDERS: PCP Nurse Practitioner; Visit Provider Obstetrics & Gynecology
PROC: (CPT 59300; principal; 2022-11-15 10:15)
DX: T81.31XA Disruption of external operation (surgical) wound, not elsewhere classified, initial encounter (principal); N93.8 Other specified abnormal uterine and vaginal bleeding; Z90.710 Acquired absence of both cervix and uterus; Y83.8 Other surgical procedures as the cause of abnormal reaction of the patient, or of later complication, without mention of misadventure at the time of the procedure; E55.9 Vitamin D deficiency, unspecified; F41.8 Other specified anxiety disorders
CPT/HCPCS: 58999; A9270; J2250; J2704; J3010; J7120

== ENCOUNTER 2023-09-24 07:21 | Outpatient (CLI) | payer OTHER, SELFPAY ==
[2023-09-24 07:40] LABS: Basophils Absolute Auto 0.1 K/mm3 (0.0-0.1); Basophils Percent Auto 0.6 % (0.2-1.2); Eosinophils Absolute Auto 0.3 K/mm3 (0-0.3); Hematocrit 37.1 % (37.0-47.0); Hemoglobin 12.5 g/dL (12.0-15.0); Immature Granulocyte Absolute 0.02 K/mm3 (0.00-0.031); Immature Granulocyte Percent A 0.2 % (0-0.5); Lymphocytes Absolute Auto 2.07 K/mm3 (0.9-3.2); Lymphocytes Percent Auto 24.6 % (18.3-44.2); Mean Corpuscular HGB Conc 33.7 g/dl (32-36); Mean Corpuscular Hemoglobin 33.2 pg (26-34); Mean Corpuscular Volume 98.7 fl (80-100); Mean Platelet Volume 9.9 fl (7.4-10.4); Monocytes Absolute Auto 0.6 K/mm3 (0.1-0.6); Monocytes Percent Auto 6.5 % (2.6-8.5); Neutrophils Absolute Auto 5.5 K/mm3 (1.3-6.7); Neutrophils Percent Auto 65.1 % (45.5-73.1); Platelet Count Result 262 k/mm3 (150-375); Red Blood Count 3.76 M/mm3 (4.2-5.4); Red Cell Distribution Width 13.8 % (11.5-14.5); White Blood Count 8.4 K/mm3 (4.5-10.0)
[2023-09-24 08:01] LABS: Alanine Aminotransferase 30 U/L (6-35); Albumin Level 4.5 g/dL (3.5-5.1); Alkaline Phosphatase 49 U/L (38-126); Anion Gap 11 mmol/L (4-12); Aspartate Amino Transferase 28 U/L (14-36); Bilirubin,Total 0.4 mg/dL (0.2-1.3); Blood Urea Nitrogen 13 mg/dL (7-17); Calcium 8.6 mg/dL (8.4-10.2); Carbon Dioxide 23 mmol/L (22-30); Chloride 103 mmol/L (98-107); Estimated Glomerular Filt Rate > 60; Glucose 93 mg/dL (65-110); Potassium 4.3 mmol/L (3.4-5.0); Sodium 137 mmol/L (137-145)
[2023-09-24 08:26] LABS: Vitamin D 25 Hydroxy 42.6 ng/mL
== END 2023-09-24 07:22 | disposition home or self-care (01) ==
PROVIDERS: PCP Nurse Practitioner Family; Visit Provider Internal Medicine
DX: Z00.00 Encounter for general adult medical examination without abnormal findings (principal); E55.9 Vitamin D deficiency, unspecified; R63.5 Abnormal weight gain; D64.9 Anemia, unspecified
CPT/HCPCS: 36415; 80053; 82306; 84443; 85025

== ENCOUNTER 2023-10-10 06:43 | Outpatient (CLI) | payer OTHER, SELFPAY ==
--- NOTE | ~2023-10-10 | CT_ITS ---
CTA brain Ordering provider: Yash Colbert DO History: . H93.A2 - Pulsatile tinnitus, left ear . Comparison: None. Technique: CT angiogram head was performed following timed intravenous injection of contrast. Thin sl ice axial images and reformatted coronal images were obtained. Three dimensional reformatted images o f the brain were also obtained using a [employer] workstation. Radiation reduction technique utilized. D LP is 1134.29 mGy-cm. 100 mL Omnipaque 350 was given IV. FINDINGS: --ANTERIOR AND MIDDLE CEREBRAL ARTERIES AND BRANCHES: Normal caliber and contour. --INTERNAL CAROTID ARTERIES:no significant stenosis. No occlusion. --BASILAR ARTERY AND BRANCHES: Normal caliber and contour. No atheromatous disease. --POSTERIOR CEREBRAL ARTERIES: Normal caliber and contour --POSTERIOR COMMUNICATING ARTERIES: Not visualized which is probably related to congenital absence or small size. --ANEURYSM: None visualized. --BRAIN: No acute intracranial process. Empty sella turcica. Persistent cavum septa pellucida. No --BONES AND SUPERFICIAL SOFT TISSUES: Normal. --PARANASAL SINUSES AND MASTOIDS: Right maxillary and left sphenoid sinusitis. IMPRESSION: No definite evidence of aneurysm or other vascular abnormalities. Reviewed, dictated and finalized at location A.
== END 2023-10-10 06:44 | disposition home or self-care (01) ==
PROVIDERS: PCP Internal Medicine; Visit Provider Internal Medicine
DX: H93.A2 Pulsatile tinnitus, left ear (principal); H70.12 Chronic mastoiditis, left ear; H90.6 Mixed conductive and sensorineural hearing loss, bilateral; R51.9 Headache, unspecified; H69.90 Unspecified Eustachian tube disorder, unspecified ear
CPT/HCPCS: 70496; Q9967

== ENCOUNTER 2023-12-10 08:04 | Outpatient (CLI) | payer OTHER, SELFPAY ==
--- NOTE | ~2023-12-10 | MR_ITS ---
EXAMINATION: MR brain/brain stem wo/w con DATE: 12/10/2023 08:59 INDICATION: Headache. TECHNIQUE: Magnetic resonance imaging (MRI) of the brain and brainstem was performed without and with 15 mL MultiHance intravenous contrast. COMPARISON: Head CT 10/10/2023 FINDINGS: The cerebellar tonsils extend 8 mm inferior to foramen magnum, consistent with Chiari 1 mal formation. There is an empty sella. Anterior to left temporal lobe, there is a 9 x 11 mm enhancing ex tra-axial mass with dural tail, consistent with a meningioma. There is no intracranial hemorrhage or acute ischemic infarct. The ventricles are normal in size. Cavum septum pellucidum and vergae are not ed. There is a mucous retention cyst in right maxillary sinus. The orbits are normal. There is a trac e left mastoid effusion. IMPRESSION: 1. Chiari 1 malformation. 2. 11 mm meningioma anterior to left temporal lobe. Reviewed, dictated and finalized at location A.
--- NOTE | ~2023-12-10 | MR_ITS ---
EXAMINATION: MR venography brain DATE: 12/10/2023 09:00 INDICATION: Headache. TECHNIQUE: Magnetic resonance venography (MRV) of the head was performed without intravenous contrast . COMPARISON: CTA 10/10/2023 FINDINGS: The superior sagittal sinus, internal cerebral veins, vein of Hemant, straight sinus, transv erse sinuses, oblique sinuses, and internal jugular veins are normal. There are normal arachnoid gran ulations in the transverse sinuses. IMPRESSION: 1. Normal MR venogram. Reviewed, dictated and finalized at location A. IMPRESSION: 1. Normal MR venogram.
== END 2023-12-10 08:05 | disposition home or self-care (01) ==
PROVIDERS: PCP Internal Medicine
DX: R51.9 Headache, unspecified (principal)
CPT/HCPCS: 70544; 70553; A9577

== ENCOUNTER 2023-12-23 06:55 | Outpatient (CLI) | payer OTHER, SELFPAY ==
--- NOTE | 2023-12-12 13:46 | PC.NURSE ---
Pre Radiology instructions Report to the outpatient raciel leeroy on date _[id number]_ at time _0700_ for procedure Time: _0900_ YOU MAY BE MONITORED AT HOSPITAL FOR UP TO 4 HOURS AFTER YOUR PROCEDURE. A visitor will be allowed to accompany the patient into the hospital. You and your visitor will be asked to self-screen and do not enter if you have any COVID symptoms. A mask is OPTIONAL within the hospital. Patients are to have no food or drink 6 hours prior to procedure time Driving will be restricted after the procedure, you must have a person to drive you home. Labs will be drawn in preop area and once reviewed, you will be taken to radiology area for procedure. When the procedure is completed, you will be taken to outpatient where you will be monitored for several hours. You may have one visitor in this area. Other than holding anti-coagulants, patient may take other medication(s) as scheduled. Prior to your appointment date patients are instructed to hold anti-coagulants after discussing with ordering provider to stop. If unable to discontinue anti-coagulants please notify radiologist. ? No aspirin or warfarin (Coumadin) for 7 days prior to the procedure. ? No clopidogrel (Plavix), ticagrelor (Brilinta), prasugrel (Effient) or dabigatran (Pradaxa) for 5 days prior to the procedure. ? No rivaroxaban (Xarelto), apixaban (Eliquis), dipyridamole (Aggrenox or Persantine) or cilostazol (Pletal) for 2 days prior to the procedure. Medications to discontinue per physician: Date to take last dose: Please leave all valuables, including medications, at home the day of procedure. The hospital will not accept responsibility for valuables. Wear comfortable, loose fitting clothing.? Follow any additional instructions given to you from ordering provider. Telephone instructions given to _Eliza__and asked if any additional questions and then verbalized understanding. Patient advised to call scheduling provider office or registration scheduling [phone] if any additional questions.
[2023-12-12 13:50] VITALS: BMI 30.2
[2023-12-23] VITALS (9 sets, daily range): BP systolic 122–151; BP diastolic 69–88; PULSE 69–87; RESP 16; TEMP 36.4; O2SAT 100
--- NOTE | ~2023-12-23 | XR_ITS ---
EXAMINATION: XR lumbar puncture diagnostic DATE: 12/23/2023 09:33 INDICATION: Headache, unspecified. TECHNIQUE: The procedure including the risks, benefits, and alternatives was discussed with the patie nt. Risks discussed included spinal headache, cerebrospinal fluid leak, bleeding, and infection. The patient understood the risks and agreed to proceed. A timeout was performed to verify the patient' s name, date of , and procedure to be performed. The skin overlying the L2-L3 level was prepped and draped in usual sterile fashion. Subcutaneous 1% lidocaine was used for local anesthesia. A 20 gauge spinal needle was advanced under fluoroscopic guidance. The needle was removed and the entry s ite was cleaned and dressed. There were no immediate complications. Fluoroscopy exposure time was 0. 1 minutes. The total number of images was 1. FINDINGS: Real-time fluoroscopy demonstrates the needle at the L2-L3 level. The opening pressure was 19 cm water (Normal range is variably defined as 6-20 cm water and up to 25 cm water in obese patient s. Pressure >25 cm water is one of the modified Dandy criteria for idiopathic intracranial hypertensi on). 11 mL of clear, colorless fluid was collected in 4 tubes. IMPRESSION: 1. Successful fluoro-guided lumbar puncture. Reviewed, dictated and finalized at location A.
[2023-12-23 07:31] LABS: Mean Platelet Volume 10.1 fl (7.4-10.4); Platelet Count Result 279 k/mm3 (150-375)
[2023-12-23 07:44] LABS: Prothrombin Time 13.1 Seconds (11.1-14.7)
[2023-12-23 09:33] LABS: Glucose CSF 49 mg/dL (40-70); Total Protein CSF 48 mg/dL (12-60)
[2023-12-23 10:13] LABS: Appearance CSF Clear (Clear); CSF source CSF; Color CSF Colorless (Colorless); Nucleated Cell CSF 0 /uL (0-5); Red Blood Cell CSF 1 (0-2)
== END 2023-12-23 11:15 | disposition home or self-care (01) ==
PROVIDERS: Psychiatry & Neurology Neurology; PCP Internal Medicine; Visit Provider Radiology Diagnostic Radiology
PROC: 009U3ZZ Drainage of Spinal Canal, Percutaneous Approach (ICD-10-PCS; CPT 62328; principal; 2023-12-23 09:00)
DX: R51.9 Headache, unspecified (principal)
CPT/HCPCS: 36415; 62328; 82945; 84157; 85049; 85610; 87070; 89051

== ENCOUNTER 2024-09-01 08:46 | Outpatient (CLI) | payer OTHER, SELFPAY ==
--- OUTSIDE RECORDS SUMMARY | 2024-09-01 09:11 | XMS_ITS | Patient Health Record ---
Author Organization [facility] ([address]) Address [address] [place] [address] Care Team Providers Care Pressure Test Operator Name Role Phone Yash Colbert Primary Care Provider Dr. Tee Tran Unavailable [phone] Allergies Allergen (clinical drug ingredient) Drug/Non Drug Allergy documented on EMR Reaction Allergy Type Onset Date Status Substance with sulfonamide structure and antibacterial mechanism of action (substance) Sulfa Antibiotics Unknown Drug Allergy Active Reason For Referral No Information Medications Medication SIG (Take, Route, Fr equency, Duration) Notes Start Date End Date Status Indomethacin 25 MG 1 capsule with food/ TUMS three times a day for 1 week, then if tolerated, 2 capsules with food/TUMS three times a day for 1 week Orally as directed for 14 days 12/30/2023 Active Social History Tobacco Use: Social History Observation Description Date Details (start date - stop date) Never Smoker NA - NA Smoking Smart Form: Question Answer Notes Are you a: never smoker Additional Findings:Tobacco Non-User Never chewe d tobacco Problems Problem Type SNOMED Code ICD Code Onset Dates Problem Status W/U Status Risk Notes Problem Chronic migraine without aura, non-refractory (disorder) (985636830708369 ) Migraine without aura, not intractable, without status migrainosus (G43.009) Active confirmed Problem Migraine with aura (4285206) Migraine with aura, not intractable, without status migrainosus (G43.109) Active confirmed Problem Chronic migraine without aura, non-intractable (870911400443700 ) Chronic migraine without aura, not intractable, without status migrainosus (G43.709) Active confirmed Problem Chiari malformation (758301191) Arnold-Chiari syndrome without spina bifida or hydrocephalus (Q07.00) Active confirmed Problem Headache (26000235) Headache, unspecified (R51.9) Active confirmed Vital Signs Blood pressure diastolic 85 mm Hg 12/18/2023 Oximetry 100 % 12/18/2023 Height 63 in 12/18/2023 Blood pressure systolic 150 mm Hg 12/18/2023 Weight 163.8 lbs 12/18/2023 BMI 29.01 kg/m2 12/18/2023 Encounters Encounter Location Date Provider Diagnosis [facility] [address] [address] 10/30/2023 Tee Ferrari Migraine with aura, not intractable, without status migrainosus G43.109 and Headache, unspecified R51.9 [facility] [address] [address] 12/18/2023 Tee Ferrari Migraine with aura, not intractable, without status migrainosus G43.109 ; Headache, unspecified R51.9 ; Arnold-Chiari syndrome without spina bifida or hydrocephalus Q07.00 and Benign neoplasm of cerebral meninges D32.0 [facility] [address] [place] [address] 10/30/2023 Tee Ferrari [facility] [address] [place] [address] 12/11/2023 Tee Ferrari [facility] [address] [place] [address] 12/24/2023 Tee Ferrari Arnold-Chiari syndro me without spina bifida or hydrocephalus Q07.00 [facility] [address] [place] [address] 12/25/2023 Tee Ferrari [facility] [address] [place] [address] 02/03/2024 Tee Ferrari [facility] [address] [address] 12/11/2023 Tee Ferrari Assessments Encounter Date Diagnosis (ICD Code) Assessment Notes Treatment Notes Treatment Clinical Notes Section Notes 12/24/2023 Arnold-Chiari syndrome without spina bifida or hydrocephalus (ICD-10 - Q07.00) 12/18/2023 Headache, unspecified (ICD-10 - R51.9) Long discussion with patient. Reviewed imaging. Small meningioma without mass effect is non-contributory , although will need to be followed. She does have an Chiari I malformation with 8 mm tonsillar descent, which could be causing symptoms. However, given that I am questioning subtle papilledema on examination, I would still recommend LP to measure OP to consider pseudotumor cerebri/idiopath ic intracranial hypertension and I would also recommend that she get a dilated eye exam to verify if publishing specialist agrees that papilledema is present and to follow this exam. If IIH is present, would treat with acetazolamide. If CSF pressure is normal, IIH would be excluded. I would then recommend Brain CSF Cine Flow study to further evaluate the Chiari I malformation as to whether CSF flow is restricted or not and consider surgical referral based upon results. I will also recommend a trial of indomethacin in the off chance that this could be a primary headache disorder, ie primary Valsalva-induced headaches, prior to any consideration of surgical referral. 10/30/2023 Migraine with aura, not intractable, without status migrainosus (ICD-10 - G43.109) Quiescent, not contributing to current complaint, does not require pharmacotherapy . She is having non-migrainous headaches that occur with exertion/straini ng/Valsalva and are worse in the morning. This along with suspicion for papilledema are concerning for increased intracranial pressure: Differential diagnosis would include cerebral venous sinus thrombosis (unlikely as presentation was not acute), cerebral venous sinus stenosis, idiopathic intracranial hypertension/pse udotumor cerebri, or Arnold-Chiari malformation. She needs more definitive neuroimaging and measurement of CSF opening pressure 10/30/2023 Headache, unspecified (ICD-10 - R51.9) Brain MRI w/wo and Brain MVR w/o ([facility]). Fluoroscopy-malcolm ded lumbar puncture ([facility]) to measure CSF opening pressure and for CSF studies (cell count/different ial, protein, glucose, gram stain and culture). If CSF opening pressure > 25 cm H2O request drainage of > 20 cc CSF. She is having non-migrainous headaches that occur with exertion/straini ng/Valsalva and are worse in the morning. This along with suspicion for papilledema are concerning for increased intracranial pressure: Differential diagnosis would include cerebral venous sinus thrombosis (unlikely as presentation was not acute), cerebral venous sinus stenosis, idiopathic intracranial hypertension/pse udotumor cerebri, or Arnold-Chiari malformation. She needs more definitive neuroimaging and measurement of CSF opening pressure 12/18/2023 Migraine with aura, not intractable, without status migrainosus (ICD-10 - G43.109) Long discussion with patient. Reviewed imaging. Small meningioma without mass effect is non-contributory , although will need to be followed. She does have an Chiari I malformation with 8 mm tonsillar descent, which could be causing symptoms. However, given that I am questioning subtle papilledema on examination, I would still recommend LP to measure OP to consider pseudotumor cerebri/idiopath ic intracranial hypertension and I would also recommend that she get a dilated eye exam to verify if publishing specialist agrees that papilledema is present and to follow this exam. If IIH is present, would treat with acetazolamide. If CSF pressure is normal, IIH would be excluded. I would then recommend Brain CSF Cine Flow study to further evaluate the Chiari I malformation as to whether CSF flow is restricted or not and consider surgical referral based upon results. I will also recommend a trial of indomethacin in the off chance that this could be a primary headache disorder, ie primary Valsalva-induced headaches, prior to any consideration of surgical referral. 12/18/2023 Arnold-Chiari syndrome without spina bifida or hydrocephalus (ICD-10 - Q07.00) Long discussion with patient. Reviewed imaging. Small meningioma without mass effect is non-contributory , although will need to be followed. She does have an Chiari I malformation with 8 mm tonsillar descent, which could be causing symptoms. However, given that I am questioning subtle papilledema on examination, I would still recommend LP to measure OP to consider pseudotumor cerebri/idiopath ic intracranial hypertension and I would also recommend that she get a dilated eye exam to verify if publishing specialist agrees that papilledema is present and to follow this exam. If IIH is present, would treat with acetazolamide. If CSF pressure is normal, IIH would be excluded. I would then recommend Brain CSF Cine Flow study to further evaluate the Chiari I malformation as to whether CSF flow is restricted or not and consider surgical referral based upon results. I will also recommend a trial of indomethacin in the off chance that this could be a primary headache disorder, ie primary Valsalva-induced headaches, prior to any consideration of surgical referral. 12/18/2023 Benign neoplasm of cerebral meninges (ICD-10 - D32.0) Long discussion with patient. Reviewed imaging. Small meningioma without mass effect is non-contributory , although will need to be followed. She does have an Chiari I malformation with 8 mm tonsillar descent, which could be causing symptoms. However, given that I am questioning subtle papilledema on examination, I would still recommend LP to measure OP to consider pseudotumor cerebri/idiopath ic intracranial hypertension and I would also recommend that she get a dilated eye exam to verify if publishing specialist agrees that papilledema is present and to follow this exam. If IIH is present, would treat with acetazolamide. If CSF pressure is normal, IIH would be excluded. I would then recommend Brain CSF Cine Flow study to further evaluate the Chiari I malformation as to whether CSF flow is restricted or not and consider surgical referral based upon results. I will also recommend a trial of indomethacin in the off chance that this could be a primary headache disorder, ie primary Valsalva-induced headaches, prior to any consideration of surgical referral. 12/25/2023 Other CancelRx Response got Denied on 2023-12-30 17:09:24 for 'Indomethacin 25 MG Capsule'Pharmac y Notes: Prescription not found. Contact Pharmacy by other means Plan Of Treatment Pending Test Test Name Order Date CELL COUNT AND DIFF, CSF 10/30/2023 CULTURE, AEROBIC AND ANAEROBIC W/GRAM ST AIN 10/30/2023 GLUCOSE, CSF 10/30/2023 PROTEIN, TOTAL, CSF 10/30/2023 MRI : Brain (with and without gadolinium ) 10/30/2023 Lumbar Puncture (Fluoroscopy-guided) Brain MRV without contrast 10/30/2023 Brain MRI Cine Flow Study 12/24/2023 Insurance Providers Payer Name Payer Address Payer Phone Subscriber Number Group Number Insured Name Patient Relationship to Insured Coverage Start Date Coverage End Date [facility] [address] [address] [place], [place] [id number] Mayra Ocampo Self - patient is the insured Medical (General) History Medical History History ICD Code Migraine Chronic sinusitis s/p sinus surgery Surgical History Surgery Date(Month/Year) Sinus surgery B foot surgery Hysterectomy
--- OUTSIDE RECORDS SUMMARY | 2024-09-01 09:11 | XMS_ITS | Clinical Summary ---
Author Organization [facility] Address [address] [place] [address] Care Team Providers Care Soup Mixer Name Role Phone Yash Colbert DO Primary Care Provider [phone] Allergies Active Allergy Reactions Criticality Noted Date Comments Sulfa (Sulfonamide Antibiotics) Rash Low 01/16 Medications No known medications Active Problems Problem Noted Date Diagnosed Date Arnold-Chiari malformation, type I 02/05/2024 Encounters Date Type Department Care Team Description 08/06/2024 External Device Data [facility] Provider, Abstract 08/05/2024 External Device Data [facility] Provider, Abstract 08/04/2024 External Device Data [facility] Provider, Abstract 08/03/2024 9:00 AM CDT Office Visit [facility] [address] [address] Tee Ferrari MD Arnold-Chiari malformation, type I (CMS/HCC) (Primary Dx); Chronic nonintractable headache, unspecified headache type; Cerebral meningioma (CMS/HCC) 06/30/2024 External Device Data [facility] Provider, Abstract 06/03/2024 External Device Data [facility] Provider, Abstract 06/03/2024 External Device Data [facility] Provider, Abstract from Last 3 Months Social History Tobacco Use Types Packs/Day Years Used Date Smoking Tobacco: Never Smokeless Tobacco: Never Comments No Sex and Gender Information Value Date Recorded Sex Assigned at Not on file Legal Sex Female 10:42 AM CDT Gender Identity Not on file Sexual Orientation Not on file Last Filed Vital Signs Vital Sign Reading Time Taken Comments Blood Pressure 132/87 08/03/2024 8:59 AM CDT Pulse 87 08/03/2024 8:59 AM CDT Temperature - - Respiratory Rate - - Oxygen Saturation 99% 08/03/2024 8:59 AM CDT Inhaled Oxygen Concentration - - Weight 65.3 kg (144 lb) 08/03/2024 8:59 AM CDT Height 154.9 cm (5' 1) 08/03/2024 8:59 AM CDT Body Mass Index 27.21 08/03/2024 8:59 AM CDT Plan of Treatment Health Maintenance Due Date Last Done Comments Pre-Diabetes and Diabetes Screening 1985 DTAP/TDAP/TD VACCINES (1 - Tdap) 2004 HEPATITIS B VACCINES (1 of 3 - 19+ 3-dose series) 2004 HPV/Cotest (21-29) 2006 CERVICAL CANCER SCREENING 11/30/2015 HPV/Cotest (30-65) 11/30/2015 PAP SMEAR 11/30/2015 INFLUENZA VACCINE (#1) 2023 HPV VACCINES Aged Out No longer eligi ble based on patient's age to complete this topic Insurance CHOICE [id number] Care Teams Soup Mixer Relationship Specialty Start Date End Date Yash Colbert DO [id number] [facility] [address] [place] [address] PCP - General Internal Medicine 01/31/24
--- OUTSIDE RECORDS SUMMARY | 2024-09-01 09:11 | XMS_ITS | Clinical Summary ---
Author Organization [facility] [address] [place] Address [address] [place] [address] Care Team Providers Care Director Of Content And Programming Name Role Phone Yash Colbert DO Primary Care Provider [phone] Allergies Active Allergy Reactions Criticality Noted Date Comments Sulfa (Sulfonamide Antibiotics) Other (See comments) Low 01/10/2022 In childhood Medications No known medications Active Problems No known active problems Surgical History Surgery Date Site/Laterality Comments SECTION SINUS SURGERY FOOT SURGERY Bilateral Social History Tobacco Use Types Packs/Day Years Used Date Smoking Tobacco: Never Assessed Comments Unknown Sex and Gender Information Value Date Recorded Sex Assigned at Not on file Legal Sex Female 9:29 AM CDT Gender Identity Not on file Sexual Orientation Not on file Obstetrics History Last Filed Vital Signs Vital Sign Reading Time Taken Comments Blood Pressure 165/95 01/10/2022 11:24 AM CDT Pulse 80 01/10/2022 11:24 AM CDT Temperature 36.9 C (98.5 F) 01/10/2022 11:24 AM CDT Respiratory Rate 18 01/10/2022 11:24 AM CDT Oxygen Saturation 100% 01/10/2022 11:24 AM CDT Inhaled Oxygen Concentration - - Weight 68 kg (150 lb) 01/10/2022 11:24 AM CDT Height 154.9 cm (5' 1) 01/10/2022 11:24 AM CDT Body Mass Index 28.34 01/10/2022 11:24 AM CDT Plan of Treatment Health Maintenance Due Date Last Done Comments Cervical Cancer Screening 1985 Depression Screening 1985 Hepatitis C Screening 1985 Varicella Vaccines (1 of 2 - 13+ 2-dose series) 1998 Hepatitis B Screening 11/30/2003 Regular Well Visit/Exam 18-64 11/30/2003 Covid-19 Vaccine (4 - 2023-2 5 season) 2023 01/17/2021, 04/29/2020, 03/31/2020 Influenza Vaccine (Season Ended) 2024 12/17/2019, 01/20/2018, 12/29/2012 DTaP/Tdap/Td Vaccine (2 - Td or Tdap) 11/24/2025 11/25/2015 Pneumococcal vaccine <65 Aged Out 03/03/1999 No longer eligible based on patient's age to complete this topic HPV Vaccines Aged Out No longer eligi ble based on patient's age to complete this topic Insurance [employer] PPO Care Teams Director Of Content And Programming Relationship Specialty Start Date End Date Yash Colbert DO PCP - General Internal Medicine 01/10/22
--- OUTSIDE RECORDS SUMMARY | 2024-09-01 09:11 | XMS_ITS | Referral Summary ---
Author Organization [facility] [address] [place] Address [address] [place] [phone] Care Team Providers Care Press Operator [employer] Name Role Phone Yash Colbert DO Primary Care Provider [phone] Allergies Active Allergy Reactions Criticality Noted Date Comments Sulfa (Sulfonamide Antibiotics) Other (See comments) Low 01/10/2022 In childhood Medications No known medications Active Problems No known active problems Social History Tobacco Use Types Packs/Day Years [...] 01/10/2022 11:24 AM CDT Plan of Treatment Not on file Insurance [facility] PPO Care Teams Press Operator [employer] Relationship Specialty Start Date End Date Yash Colbert DO PCP - General Internal Medicine 01/10/22
[2024-09-03 03:18] LABS: FSH 6.2 mIU/mL
[2024-09-05 12:33] LABS: Testosterone Free 1 pg/mL (0.1-6.4); Testosterone Total 10 ng/dL (2-45)
== END 2024-09-01 08:47 | disposition home or self-care (01) ==
LOC: ANHLAB 08:48
PROVIDERS: PCP Internal Medicine; Visit Provider Obstetrics & Gynecology
DX: N95.9 Unspecified menopausal and perimenopausal disorder (principal)
CPT/HCPCS: 36415; 82670; 83001; 84402; 84403; 84443

== ENCOUNTER 2025-01-13 06:37 | Outpatient (CLI) | payer OTHER, SELFPAY ==
--- NOTE | ~2025-01-13 | MR_ITS ---
EXAMINATION: MR brain/brain stem wo/w con DATE: 01/13/2025 07:44 INDICATION: Meningioma. TECHNIQUE: Magnetic resonance imaging (MRI) of the brain and brainstem was performed without and with 13 mL MultiHance intravenous contrast. COMPARISON: Brain MRI 12/10/2023 FINDINGS: The cerebellar tonsils extend 9 mm inferior to foramen magnum, consistent with Chiari 1 malformation. There is a 15 x 11 x 15 mm enhancing extra-axial mass anterior to left temporal lobe, consistent with a meningioma. There is no acute ischemic infarct or intracranial hemorrhage. The ventricles are normal in size. Cavum septum pellucidum and vergae are noted. The orbits are normal. There is mucosal thickening in the paranasal sinuses. There is a trace left mastoid effusion. IMPRESSION: 1. 15 mm meningioma anterior to left temporal lobe, increased from 11 mm on 12/10/2023. 2. Chiari 1 malformation. Reviewed, dictated and finalized at location E. IMPRESSION: 1. 15 mm meningioma anterior to left temporal lobe, increased from 11 mm on 11/17. 2. Chiari 1 malformation.
--- NOTE | ~2025-01-13 | MR_ITS ---
EXAMINATION: MR cervical spine wo/w con DATE: 01/13/2025 07:44 INDICATION: Meningioma. TECHNIQUE: Magnetic resonance imaging (MRI) of the cervical spine was performed without and with 13 mL MultiHance intravenous contrast. COMPARISON: None FINDINGS: There is 5 degrees levocurvature of cervical spine. Vertebral body heights are normal. Intervertebral disc heights are normal. The cerebellar tonsils extend 9 mm anterior to the magnum, consistent with Chiari 1 malformation. The spinal cord signal intensity is normal. The following disc levels are specifically discussed: C2-C3: The disc does not extend beyond the endplate margin. There is no uncovertebral joint osteoarthritis. There is mild bilateral facet joint osteoarthritis. There is no neural foraminal stenosis. There is no central canal stenosis. C3-C4: The disc does not extend beyond the endplate margin. There is no uncovertebral joint osteoarthritis. There is moderate bilateral facet joint osteoarthritis. There is no neural foraminal stenosis. There is no central canal stenosis. C4-C5: The disc does not extend beyond the endplate margin. There is mild left uncovertebral joint osteoarthritis. There is moderate bilateral facet joint osteoarthritis. There is mild left neural foraminal stenosis. There is no central canal stenosis. C5-C6: The disc does not extend beyond the endplate margin. There is mild left uncovertebral joint osteoarthritis. There is severe bilateral facet joint osteoarthritis. There is mild right neural foraminal stenosis. There is no central canal stenosis. C6-C7: The disc is bulging. There is mild bilateral uncovertebral joint osteoarthritis. There is mild right and moderate left facet joint osteoarthritis. There is mild bilateral neural foraminal stenosis. There is no central canal stenosis. C7-T1: The disc does not extend beyond the endplate margin. There is no uncovertebral joint osteoarthritis. There is mild right and severe left facet joint osteoarthritis. There is mild bilateral neural foraminal stenosis. There is no central canal stenosis. IMPRESSION: 1. Mild cervical spondylosis. 2. Chiari 1 malformation. No syrinx. Reviewed, dictated and finalized at location E.
== END 2025-01-13 06:38 | disposition home or self-care (01) ==
PROVIDERS: PCP Internal Medicine
DX: M47.812 Spondylosis without myelopathy or radiculopathy, cervical region (principal); G93.5 Compression of brain; D32.0 Benign neoplasm of cerebral meninges
CPT/HCPCS: 70553; 72156; A9577